=== PATIENT | female | born 1970 | race Caucasian/White ===

== ENCOUNTER 2017-12-29 21:49 | Emergency (ER) | payer OTHER ==
[~2017-12-29] VITALS: Ht 154.9 cm; Wt 70.4 kg
[2017-12-29 21:59] VITALS: Ht 154.9 cm; Wt 70.4 kg
[2017-12-29 22:39] VITALS: BP 122/86
== END 2017-12-29 22:39 | disposition home or self-care (01) ==
LOC: ED 21:49
DX: S63.601A Unspecified sprain of right thumb, initial encounter (principal); Z90.710 Acquired absence of both cervix and uterus; W22.8XXA Striking against or struck by other objects, initial encounter; Y93.89 Activity, other specified; Y92.89 Other specified places as the place of occurrence of the external cause; Y99.8 Other external cause status
CPT/HCPCS: J1885

== ENCOUNTER 2018-07-05 20:26 | Emergency (ER) | payer OTHER ==
[2018-07-05 20:40] VITALS: Ht 152.4 cm
[2018-07-05 21:50] VITALS: BP 128/81
== END 2018-07-05 21:50 | disposition home or self-care (01) ==
LOC: ED 20:26
DX: S60.222A Contusion of left hand, initial encounter (principal); X58.XXXA Exposure to other specified factors, initial encounter; Y93.89 Activity, other specified; Y92.89 Other specified places as the place of occurrence of the external cause; Y99.8 Other external cause status; Z90.710 Acquired absence of both cervix and uterus; Z85.89 Personal history of malignant neoplasm of other organs and systems
CPT/HCPCS: 90715; Q0092

== ENCOUNTER 2019-07-17 09:04 | Emergency (ER) | payer OTHER ==
[~2019-07-17] VITALS: Ht 154.9 cm; Wt 67.8 kg
[2019-07-17 09:09] VITALS: BP 109/70; Ht 154.9 cm; Wt 67.8 kg
== END 2019-07-17 10:15 | disposition home or self-care (01) ==
LOC: ED 09:04
DX: J02.9 Acute pharyngitis, unspecified (principal); Z90.710 Acquired absence of both cervix and uterus

== ENCOUNTER 2019-08-06 14:33 | Emergency (ER) | payer OTHER ==
[~2019-08-06] VITALS: Ht 152.4 cm; Wt 67.6 kg
[2019-08-06 14:40] VITALS: Ht 152.4 cm; Wt 67.6 kg
[2019-08-06 18:02] VITALS: BP 112/75
== END 2019-08-06 18:02 | disposition home or self-care (01) ==
LOC: ED 14:33
DX: S46.912A Strain of unspecified muscle, fascia and tendon at shoulder and upper arm level, left arm, initial encounter (principal); S63.501A Unspecified sprain of right wrist, initial encounter; S93.602A Unspecified sprain of left foot, initial encounter; W23.0XXA Caught, crushed, jammed, or pinched between moving objects, initial encounter; Y93.89 Activity, other specified; Y92.89 Other specified places as the place of occurrence of the external cause; Y99.8 Other external cause status

== ENCOUNTER 2019-08-12 11:48 | Emergency (ER) | payer OTHER ==
[~2019-08-12] VITALS: Ht 152.4 cm; Wt 68.0 kg
[2019-08-12 11:53] VITALS: Ht 152.4 cm; Wt 68.0 kg
[2019-08-12 12:31] VITALS: BP 148/73
== END 2019-08-12 12:31 | disposition home or self-care (01) ==
LOC: ED 11:48
DX: S13.4XXA Sprain of ligaments of cervical spine, initial encounter (principal); Z90.710 Acquired absence of both cervix and uterus; W18.30XA Fall on same level, unspecified, initial encounter; Y93.89 Activity, other specified; Y92.89 Other specified places as the place of occurrence of the external cause; Y99.8 Other external cause status